=== PATIENT | male | born 1985 | race Hispanic/Latino ===

== ENCOUNTER 2019-04-14 19:46 | Emergency (ER) | payer SELFPAY ==
--- NOTE | 2019-04-14 20:22 | Event Note ---
ED Screening Note Date of service: 04/14/19 Time: 20:15 ED Screening Note: This is a 34 y.o. M. that presents to the ER with edema worse on RLE. PMH of sleep apnea Reports orthopena and edema, discoloration to RLE. This initial assessment/diagnostic orders/clinical plan/treatment(s) is/are s ubject to change based on patients health status, clinical progression and re- assessment by fellow clinical providers in the ED. Further treatment and workup at subsequent clinical providers discretion. Patient/guardian urged not to elope from the ED as their condition may be serious if not clinically assessed and managed. Initial orders include: Labs and CXR
[2019-04-14 20:40] LABS: Basophils % (Auto) 0.3 % (0.0-1.8); Eosinophils # (Auto) 0.1 K/mm3 (0.0-0.4); Eosinophils % (Auto) 1.9 % (0.0-4.3); Hematocrit 42.3 % (35.5-45.6); Hemoglobin 14.6 gm/dl (11.8-15.2); Lymphocytes # (Auto) 1.3 K/mm3 (1.2-5.4); Lymphocytes % (Auto) 17.2 % (13.4-35.0); Mean Corpuscular HGB Conc 35 % (32-34); Mean Corpuscular Volume 81 fl (84-94); Monocytes # (Auto) 0.9 K/mm3 (0.0-0.8); Monocytes % (Auto) 11.6 % (0.0-7.3); Platelet Count 208 K/mm3 (140-440); Red Cell Distribution Width 14.4 % (13.2-15.2)
[2019-04-14 20:59] LABS: Alanine Aminotransferase 59 units/L (7-56); Albumin 3.9 g/dL (3.9-5); BUN/Creatinine Ratio 17; Blood Urea Nitrogen 12 mg/dL (9-20); Calcium 9.8 mg/dL (8.4-10.2); Hemolysis Index 14
--- NOTE | 2019-04-14 21:52 | XRay Report ---
CHEST 1 VIEW INDICATION / CLINICAL INFORMATION: Shortness of breath, edema. COMPARISON: None available. FINDINGS: SUPPORT DEVICES: None. Low lung volumes with elevation of the diaphragm, crowding of bronchovascular structures, as. Widenin g of the cardiac silhouette, and bibasilar subsegmental atelectasis. The heart is probably mildly enl arged. No parenchymal consolidation. No definite pleural effusion. No pneumothorax is appreciated. IMPRESSION: 1. Limited exam due to very low lung volumes. No acute abnormalities identified. Signer Name: Irvin Moses MD Signed: 04/14/2019 9:48 PM Workstation Name: [id number]
--- NOTE | 2019-04-14 22:06 | Emergency Department Report ---
ED Extremity Problem HPI - General Chief complaint: Extremity Injury, Lower Stated complaint: RIGHT LEG SWELLING Time Seen by Provider: 04/14/19 20:14 Source: patient Mode of arrival: Ambulatory Limitations: No Limitations - History of Present Illness Initial comments: Patient is 34 years old male, morbidly obese with history of obstructive sleep apnea and history of DVT. Patient presented to the ER complaining of right leg pain, swelling and discoloration for the last week. Patient denies any recent injury. No fever or chills. Patient also denied any chest pain or shortness of breath. MD Complaint: extremity pain, extremity swelling -: week(s) Location: right, lower extremity History of Same: Yes Radiation: none Consistency: constant Associated Symptoms: denies other symptoms - Related Data Previous Rx's Medication Instructions Recorded Last Taken Type Rivaroxaban [Xarelto] 20 mg PO QDAY #30 tab 04/14/19 Unknown Rx Allergies Allergy/AdvReac Type Severity Reaction Status Date / Time No Known Allergies Allergy Verified 04/14/19 19:52 ED Review of Systems ROS: Stated complaint: RIGHT LEG SWELLING Other details as noted in HPI Comment: All other systems reviewed and negative Constitutional: denies: chills, fever Respiratory: denies: cough, shortness of breath, SOB with exertion Cardiovascular: denies: chest pain, palpitations Gastrointestinal: denies: abdominal pain, nausea, vomiting, diarrhea, constip ation, hematemesis, melena, hematochezia Musculoskeletal: denies: back pain, joint swelling Neurological: denies: headache, weakness ED Past Medical Hx - Past Medical History Previous Medical History?: Yes Additional medical history: Morbid Obesity, Sleep Apnea - Surgical History Past Surgical History?: No - Social History Smoking Status: Never Smoker Substance Use Type: None - Medications Home Medications: Home Medications Medication Instructions Recorded Confirmed Last Taken Type Rivaroxaban [Xarelto] 20 mg PO QDAY #30 tab 04/14/19 Unknown Rx ED Physical Exam - General Limitations: No Limitations General appearance: alert, in no apparent distress - Head Head exam: Present: atraumatic, normocephalic, normal inspection - Eye Eye exam: Present: normal appearance, PERRL - ENT ENT exam: Present: normal exam, normal orophraynx, mucous membranes moist - Neck Neck exam: Present: normal inspection, full ROM. Absent: tenderness, meningismus, lymphadenopathy, thyromegaly - Respiratory Respiratory exam: Present: normal lung sounds bilaterally - Cardiovascular Cardiovascular Exam: Present: regular rate, normal rhythm, normal heart sounds - GI/Abdominal GI/Abdominal exam: Present: soft, normal bowel sounds. Absent: distended, tenderness, guarding, rebound, rigid, organomegaly, mass, bruit, pulsatile mass - Extremities Exam Extremities exam: Present: tenderness, pedal edema, calf tenderness. Absent: joint swelling - Expanded Lower Extremity Exam Right Lower Leg exam: Present: tenderness, swelling, dislocation, erythema Neuro vascular tendon exam: Present: no vascular compromise - Back Exam Back exam: Present: normal inspection. Absent: CVA tenderness (R), CVA tenderness (L) - Neurological Exam Neurological exam: Present: alert, oriented X3, CN II-XII intact - Skin Skin exam: Present: warm, intact, normal color ED Course Vital Signs 04/14/19 04/14/19 19:55 20:17 Temperature 98.9 F 98.9 F Pulse Rate 98 H 98 H Respiratory 18 18 Rate Blood Pressure 154/85 154/85 O2 Sat by Pulse 92 93 Oximetry - Reevaluation(s) Reevaluation #1: 04/15/19 01:00 Patient observed in the ER course after Xarelto. Patient still denying any chest pain or shortness of breath. Patient discharged in a stable condition. ED Medical Decision Making - Lab Data Result diagrams: 04/14/19 20:27 04/14/19 Unknown - Radiology Data Radiology results: report reviewed Right lower extremity Doppler ultrasound showed nonocclusive femoral vein DVT - Medical Decision Making Patient is 34 years old male, morbidly obese with history of obstructive sleep apnea and history of DVT. Patient presented to the ER complaining of right leg pain, swelling and discoloration for the last week. Patient denies any recent injury. No fever or chills. Patient also denied any chest pain or shortness of breath. Right lower extremity Doppler ultrasound showed nonocclusive femoral vein DVT. No DVT on the left lower extremity. Patient stated that he was taking Xorelto but he stopped taking it 7 month ago. Patient still denying any chest pain or shortness of breath. Patient will be RESTARTED on Xorelto and given [facility] clinic to follow-up. Patient also advised to return to the ER if symptoms are not improved or if he develop any chest pain or shortness of breath. Critical care attestation.: If time is entered above; I have spent that time in minutes in the direct care of this critically ill patient, excluding procedure time. ED Disposition Clinical Impression: Right femoral vein DVT, Leg pain, right Disposition: DC- TO HOME OR SELFCARE Is pt being admited?: No Condition: Stable Instructions: Deep Venous Thrombosis (ED) Prescriptions: Rivaroxaban [Xarelto] 20 mg PO QDAY #30 tab Referrals: EVNONE GREENBERG MD [Primary Care Provider] - 3-5 Days
--- NOTE | 2019-04-14 22:18 | Vascular Lab Report ---
DUPLEX DOPPLER LOWER EXTREMITY VEINS, BILATERAL INDICATION: Leg pain, swelling. TECHNIQUE: Duplex doppler imaging was performed through the veins of both lower extremities using venous sara yunior and other maneuvers. COMPARISON: None available. FINDINGS: Right Common Femoral vein: Negative. Right Femoral vein: Nonocclusive DVT within mid to distal femoral vein Right Popliteal vein: Negative. Right Calf veins: Negative. Left Common Femoral vein: Negative. Left Femoral vein: Negative. Left Popliteal vein: Negative. Left Calf veins: Negative. Additional findings: None. IMPRESSION: 1. Nonocclusive DVT right femoral vein 2. No sonographic evidence for DVT in left lower extremity. Signer Name: Dandy Cheema MD Signed: 04/14/2019 10:14 PM Workstation Name: [id number]
[2019-04-14] MEDS ORDERED: XARELTO PO ONE (22:36)
[2019-04-14 23:05] LABS: Partial Thromboplastin Time 23.5 Sec. (24.2-36.6)
[2019-04-15 04:14] VITALS: BP 143/88
== END 2019-04-15 01:30 | disposition home or self-care (01) ==
LOC: ED 19:46
DX: I82.411 Acute embolism and thrombosis of right femoral vein (principal); E66.09 Other obesity due to excess calories; Z68.43 Body mass index [BMI] 50.0-59.9, adult
CPT/HCPCS: 36415; 71045; 80053; 83880; 85025; 85379; 85610; 85730; 93970

== ENCOUNTER 2019-06-15 01:10 | Emergency (ER) | payer SELFPAY ==
[2019-06-15] MEDS ORDERED: FUROSEMIDE 40 MG/4 ML INJ IV ONE (01:33)
[2019-06-15 02:22] LABS: Alanine Aminotransferase 55 units/L (7-56); Albumin 4.1 g/dL (3.9-5); BUN/Creatinine Ratio 20; Blood Urea Nitrogen 14 mg/dL (9-20); Calcium 9.3 mg/dL (8.4-10.2); Hemolysis Index 11
[2019-06-15 02:57] LABS: Bilirubin,Urine NEG (Negative); Blood,Urine NEG (Negative); Color,Urine Colorless (Yellow); Protein,Urine <15 mg/dL mg/dL (Negative); Urobilinogen,Urine < 2.0 mg/dL (<2.0); WBC,Urine < 1.0 /HPF (0.0-6.0)
--- NOTE | 2019-06-15 03:24 | Emergency Department Report ---
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 Patient states that he does have swelling to the bilateral legs and baseline however he has some redness to the [place]an[place] over the last week. Patient denies fevers chills nausea vomiting at this time. Patient denies chest pain but does have some shortness of breath with exertion and when lying flat. Patient states he had been told that he may have congestive heart failure but he has no definitive diagnosis and is not on Lasix at this time. In reviewing the patient's chart history 2 months ago the patient was seen here in emergency department and diagnosed with a right sided lower extremity DVT. Patient states that he was given a blood thinner however he did not get the blood thinners filled because [facility] was discharged to much money. Patient states that he had no chest pain at that time and still does not. Patient does get winded with exertion but he states that when he is sitting still he has no incre ased shortness of breath. - Related Data Previous Rx's Medication Instructions Recorded Last Taken Type Rivaroxaban [Xarelto] 20 mg PO QDAY #30 tab 04/14/19 Unknown Rx Apixaban [Eliquis starter pack] 5 mg PO BID #1 tab.ds.pk 06/15/19 Unknown Rx Furosemide [Lasix TAB] 40 mg PO QDAY #7 tablet 06/15/19 Unknown Rx Sulfamethoxazole/Trimethoprim 1 each PO BID #14 tablet 06/15/19 Unknown Rx [Bactrim DS TAB] Allergies Allergy/AdvReac Type Severity Reaction Status Date / Time No Known Allergies Allergy Verified 04/14/19 19:52 ED Review of Systems ROS: Stated complaint: SWOLLEN LEG Other details as noted in HPI Comment: All other systems reviewed and negative ED Past Medical Hx - Past Medical History Previous Medical History?: Yes Hx Deep Vein Thrombosis: Yes Additional medical history: Morbid Obesity, Sleep Apnea - Surgical History Past Surgical History?: No - Social History Smoking Status: Never Smoker Substance Use Type: None - Medications Home Medications: Home Medications Medication Instructions Recorded Confirmed Last Taken Type Rivaroxaban [Xarelto] 20 mg PO QDAY #30 tab 04/14/19 Unknown Rx Apixaban [Eliquis starter pack] 5 mg PO BID #1 tab.ds.pk 06/15/19 Unknown Rx Furosemide [Lasix TAB] 40 mg PO QDAY #7 tablet 06/15/19 Unknown Rx Sulfamethoxazole/Trimethoprim 1 each PO BID #14 tablet 06/15/19 Unknown Rx [Bactrim DS TAB] ED Physical Exam - General Limitations: No Limitations General appearance: alert, in no apparent distress, obese - Head Head exam: Present: atraumatic, normocephalic - Eye Eye exam: Present: normal appearance, PERRL, EOMI - ENT ENT exam: Present: mucous membranes moist - Neck Neck exam: Present: normal inspection - Respiratory Respiratory exam: Present: normal lung sounds bilaterally. Absent: respiratory distress, wheezes, rales, rhonchi - Cardiovascular Cardiovascular Exam: Present: regular rate, normal rhythm, normal heart sounds. Absent: systolic murmur, diastolic murmur, rubs, gallop - GI/Abdominal GI/Abdominal exam: Present: soft, distended, normal bowel sounds. Absent: tenderness, guarding, rebound - Rectal Rectal exam: Present: deferred - Extremities Exam Extremities exam: Present: normal inspection - Back Exam Back exam: Present: normal inspection - Neurological Exam Neurological exam: Present: alert, oriented X3 - Psychiatric Psychiatric exam: Present: normal affect, normal mood - Skin Skin exam: Present: warm, dry, intact, normal color, other (patient with some mild warmth and slight erythema of the right quintanilla. Bilateral lower extremities show 2+ edema with chronic hyperpigmentation.). Absent: rash ED Course Vital Signs 06/15/19 06/15/19 06/15/19 01:32 01:45 02:31 Temperature 97.6 F Pulse Rate 89 81 66 Respiratory 35 H 37 H 37 H Rate Blood Pressure 167/100 167/100 165/94 O2 Sat by Pulse 95 94 89 Oximetry ED Medical Decision Making - Lab Data Result diagrams: 06/15/19 01:45 Lab Results 06/15/19 06/15/19 Range/Units 01:45 02:22 Sodium 140 (137-145) mmol/L Potassium 3.9 (3.6-5.0) mmol/L Chloride 100.4 (98-107) mmol/L Carbon Dioxide 25 (22-30) mmol/L Anion Gap 19 mmol/L BUN 14 (9-20) mg/dL Creatinine 0.7 L (0.8-1.5) mg/dL Estimated GFR > 60 ml/min BUN/Creatinine Ratio 20 % Glucose 169 H (75-100) mg/dL Calcium 9.3 (8.4-10.2) mg/dL Total Bilirubin 0.20 (0.1-1.2) mg/dL AST 30 (5-40) units/L ALT 55 (7-56) units/L Alkaline Phosphatase 66 (35-129) units/L Troponin T < 0.010 (0.00-0.029) ng/mL NT-Pro-B Natriuret Pep 15.72 (0-450) pg/mL Total Protein 7.2 (6.3-8.2) g/dL Albumin 4.1 (3.9-5) g/dL Albumin/Globulin Ratio 1.3 % Urine Color Colorless (Yellow) Urine Turbidity Clear (Clear) Urine pH 6.0 (5.0-7.0) Ur Specific [place] 1.006 (1.003-1.030) Urine Protein <15 mg/dl (Negative) mg/dL Urine Glucose (UA) Neg (Negative) mg/dL Urine Ketones Neg (Negative) mg/dL Urine Blood Neg (Negative) Urine Nitrite Neg (Negative) Urine Bilirubin Neg (Negative) Urine Urobilinogen < 2.0 (<2.0) mg/dL Ur Leukocyte Esterase Neg (Negative) Urine WBC (Auto) < 1.0 (0.0-6.0) /HPF Urine RBC (Auto) 3.0 (0.0-6.0) /HPF - Medical Decision Making Patient likely with 2 issues today. First the patient does have sleep apnea and has cardiomegaly on chest x-ray and a little vascular congestion. Patient likely with some degree of heart strain secondary to sleep apnea. Patient has chronic lower cavity edema as well. Patient started on Lasix. Additionally patient's been noncompliant with blood thinners.. Patient states that he could not afford medications. Patient be started L [employer] given a discount card for the first month free. Patient will be discharged home with Lasix L Ortiz as well as a short course of antibiotics to cover for possible cellulitis with the right lower extremity. Critical care attestation.: If time is entered above; I have spent that time in minutes in the direct care of this critically ill patient, excluding procedure time. ED Disposition Clinical Impression: Leg edema Cellulitis Qualifiers: Site of cellulitis: extremity Site of cellulitis of extremity: lower extremity Laterality: right Qualified Code(s): L03.115 - Cellulitis of right lower limb DVT (deep venous thrombosis) Qualifiers: DVT location: lower extremity Affected thrombotic vein of extremity: femoral Chronicity: chronic Laterality: right Qualified Code(s): I82.511 - Chronic embolism and thrombosis of right femoral vein Sleep apnea Qualifiers: Sleep apnea type: unspecified type Qualified Code(s): G47.30 - Sleep apnea, unspecified Heart failure Qualifiers: Heart failure type: unspecified Heart failure chronicity: acute on chronic Qualified Code(s): I50.9 - Heart failure, unspecified Disposition: TO HOME OR SELFCARE Is pt being admited?: No Does the pt Need Aspirin: No Condition: Stable Instructions: Heart Failure (ED), Deep Venous Thrombosis (ED), Leg Edema (ED) Referrals: LIBRA BA MD [Staff Physician] - 3-5 Days (for evaluation of heart failure ) ROBBIN WARD MD [Staff Physician] - 3-5 Days (for sleep apnea evaluation ) DONNIE RODRIGUES MD [Staff Physician] - 3-5 Days (for primary care needs ) Time of Disposition: 03:44
[2019-06-15] MEDS ORDERED: APIXABAN 5 MG TAB PO ONE (04:00)
[2019-06-15 04:15] VITALS: BP 165/74
--- NOTE | 2019-06-15 04:17 | XRay Report ---
CHEST 2 VIEWS INDICATION / CLINICAL INFORMATION: dyspnea. COMPARISON: Chest radiograph 04/14/2019 FINDINGS: SUPPORT DEVICES: None. HEART / MEDIASTINUM: Stable cardiomegaly. LUNGS / PLEURA: Mild interstitial pulmonary edema. No focal pulmonary consolidation. No pneumothorax. ADDITIONAL FINDINGS: No significant additional findings. IMPRESSION: 1. Stable cardiomegaly with mild interstitial edema. Signer Name: Antonia Ramirez MD Signed: 06/15/2019 4:13 AM Workstation Name: [id number]
== END 2019-06-15 04:16 | disposition home or self-care (01) ==
LOC: ED 01:10
DX: L03.115 Cellulitis of right lower limb (principal); I82.511 Chronic embolism and thrombosis of right femoral vein; G47.30 Sleep apnea, unspecified; I50.9 Heart failure, unspecified; E66.01 Morbid (severe) obesity due to excess calories
CPT/HCPCS: 36415; 71046; 80048; 80053; 81001; 83880; 84484; 96374; 99285; J1940